=== PATIENT | female | born 1955 | race Caucasian/White ===

== ENCOUNTER 2018-01-13 13:01 | Outpatient (CLI) | payer OTHER | END 2018-01-13 13:02 | LOC: LABRHC 13:01 | PROVIDERS: ATTEND Physician Assistant | DX: R30.0 Dysuria (principal) | CPT/HCPCS: 87086 ==

== ENCOUNTER 2018-01-15 06:27 | Outpatient (CLI) | payer OTHER ==
[2018-01-15 07:06] LABS: BASOPHILS % 0.6 (0.0-1.5); EOSINOPHILS % 4.8 % (0.0-6.8); MEAN CORPUSCULAR HEMOGLOBIN 30.7 pg (28.0-34.0); MEAN CORPUSCULAR VOLUME 90.4 fl (80.0-100.0); NEUTROPHILS # 2.7 # k/uL (1.4-7.7)
[2018-01-15 09:12] LABS: eGFR (African) > 60; eGFR (Non-African) > 60
== END 2018-01-15 06:30 ==
LOC: LAB 06:27
PROVIDERS: ATTEND Physician Assistant
DX: I10 Essential (primary) hypertension (principal); Z13.6 Encounter for screening for cardiovascular disorders; E03.9 Hypothyroidism, unspecified; Z51.81 Encounter for therapeutic drug level monitoring; Z79.890 Hormone replacement therapy
CPT/HCPCS: 36415; 80053; 80061; 84443; 85025

== ENCOUNTER 2019-08-10 08:56 | Outpatient (CLI) | payer OTHER ==
[2019-08-10 10:12] LABS: HDL 53 mg/dL (>40); eGFR (Non-African) > 60
== END 2019-08-10 09:01 ==
LOC: LAB 08:56
PROVIDERS: ATTEND Family Medicine
DX: Z13.220 Encounter for screening for lipoid disorders (principal)
CPT/HCPCS: 36415; 80053; 80061; 84443